=== PATIENT | female | born 1965 | race Caucasian/White ===

== ENCOUNTER 2020-12-28 13:16 | Emergency (ER) | payer OTHER, SELFPAY ==
--- NOTE | ~2020-12-28 | XR_ITS ---
EXAMINATION: XR elbow RT min 3V DATE: 12/28/2020 13:59 INDICATION: Right elbow pain and swelling TECHNIQUE: Anteroposterior, two oblique and lateral views of the right elbow were obtained. COMPARISON: None. FINDINGS: Right elbow alignment is normal. No fracture or joint effusion. Joint spaces are normal. Soft tissues are unremarkable. IMPRESSION: 1. Negative right elbow radiographs. Reviewed, dictated and finalized at location A.
[2020-12-28 13:22] VITALS: BP 124/87; PULSE 77; RESP 16; TEMP 36.9; O2SAT 99
--- NOTE | 2020-12-28 13:28 | ED.EXTPRO ---
HPI - Extremity Problem General Chief complaint: Extremity Problem,Nontraumatic Stated complaint: R ELBOW PAIN Time Seen by Provider: 12/28/20 13:40 Source: patient and RN notes reviewed Mode of arrival: ambulatory Limitations: no limitations History of Present Illness HPI Narrative: 55-year-old female presents with concern for right elbow pain, decreased range of motion that started today. She denies injury or trauma. She denies distal numbness, tingling, decrease strength. She denies warmth, redness, open skin. She denies any history of problems with that extremity. She reports pain radiates towards the shoulder. She denies fever, body aches. MD Complaint: extremity pain Related Data Allergies Allergy/AdvReac Type Severity Reaction Status Date / Time tetracycline Allergy Unknown Skin Verified 12/28/20 13:22 Reaction Review of Systems Review of Systems: CONSTITUTIONAL: Denies malaise, chills, sweats, or fever. SKIN: Denies rash or itching, bruising, swelling, erythema, warmth. MUSCULOSKELETAL: Reports right elbow pain and decreased range of motion NEUROLOGIC: Denies numbness, weakness. All systems reviewed & are unremarkable except as noted in HPI and below PMFSH Past Medical History Medical History Anxiety Back pain Hx of migraines Obesity Obesity (BMI 30-39.9) Surgical History Surgical History History of bilateral tubal ligation (~2008) Family History Family History Mother Family history of obesity Depression Hypertension Asthma Cerebrovascular accident Father Family history of hypercholesterolemia Hypertension Social History Social History Smoking packs per day: 0.5 Smoking cigarettes per day: 10.0 Tobacco type: cigarettes Alcohol intake: current Comments At time of signature, agree with nursing past medical, surgical, social and family history. There is no relevant family history pertinent to the presenting complaint Exam Narrative: GENERAL: Well-appearing, well-nourished, and in no acute distress. HEAD: Normocephalic, atraumatic. EYES: PERRLA, conjunctivae clear NECK: Supple. CHEST: Speaks in full sentences. No respiratory distress. HEART: Regular rate and rhythm. Normal and equal peripheral pulses. EXTREMITIES: Right elbow has grossly normal strength and sensation. Limited range of motion, unable to fully extend. No edema erythema, warmth, or ecchymosis. Lateral elbow tenderness. No open wounds, no skin tenting, no devitalized tissue or atrophy, no trophic changes, no obvious deformity, alignment normal, nearby joints and structures intact. Distal pulses palpable and equal bilaterally, skin warm, dry, pink. Capillary refill less than 3 seconds. SKIN: Warm, dry, no rash. NEURO: Alert and oriented x3. PSYCH: Normal mood and affect Course Course Emergency Course: Patient is aware of diagnosis, understands and agrees to treatment plan. Anticipatory guidance given. Patient agrees to follow-up as directed and is aware of reasons to seek care at the emergency department. Portions of this record may have been created with voice recognition software Vital Signs Vital signs: Reviewed. MDM - Extremity (Nontraumatic) MDM Narrative Medical decision making narrative: Patients pain is consistent with musculoskeletal etiology. No signs of neurological or vascular compromise on exam. Compartments and tissues are soft without signs of compartment syndrome. Pain is felt appropriate for further evaluation on an outpatient basis. Imaging Data My impression: Images reviewed, interpreted by radiologist, agree, see report. Radiologist's impression: EXAMINATION: XR elbow RT min 3V DATE: 12/28/2020 13:59 INDICATION: Right elbow pain and swelling TECHNIQUE: Anteropos
== END 2020-12-28 14:30 | disposition home or self-care (01) ==
PROVIDERS: Emergency Provider Nurse Practitioner; PCP Family Medicine
DX: M25.521 Pain in right elbow (principal); F17.210 Nicotine dependence, cigarettes, uncomplicated
CPT/HCPCS: 73080; 99213; G0463

== ENCOUNTER → 2021-04-10 12:08 | Outpatient (CLI) | payer OTHER, SELFPAY ==
--- NOTE | ~2021-04-10 | XR_ITS ---
EXAMINATION:XR_[id number] DATE: 04/10/2021 12:29 INDICATION: Brachial plexus disorder with 20 years of neck pain. Bilateral arm numbness and tingling. TECHNIQUE: AP, lateral, lateral swimmers and odontoid views of the cervical spine are provided. COMPARISON: None FINDINGS: Mild upper thoracic levocurvature. Normal alignment of the cervical spine. Odontoid is intact. Angelica l atlantoaxial interval. Vertebral body heights are normal. Mild disc height loss at C4-C5 and C6-C7 and mild to moderate disc height loss at C5-C6. There is mild associated uncovertebral osteoarthritis at each of these levels. Multilevel mild to moderate cervical facet osteoarthritis most prominent at C3-C4 and C7-T1. No cervical ribs. Prevertebral soft tissues are normal. Visualized apices of the ede ngs are clear. IMPRESSION: 1. Interval progression of mild to moderate cervical spondylosis. Reviewed, dictated and finalized at location A. RPRISE APPLICATION DEVELOPER
== END ==
PROVIDERS: PCP Physician Assistant; Visit Provider Physician Assistant
DX: G54.0 Brachial plexus disorders (principal)
CPT/HCPCS: 72040

== ENCOUNTER 2021-05-28 08:20 | Outpatient (CLI) | payer OTHER, SELFPAY ==
--- NOTE | ~2021-05-28 | MM_ITS ---
EXAMINATION: MM screening benja BI w roxie HISTORY: Screening TECHNIQUE: Craniocaudal and mediolateral oblique 3-D tomosynthesis images were obtained and synthetic 2-D images were generated. CAD analysis was submitted and interpreted. COMPARISON: Comparison to multiple prior studies sequentially, with oldest reviewed study dated 09/2012. BREAST PARENCHYMAL COMPOSITION: There are scattered areas of fibroglandular density. FINDINGS: There is no evidence of suspicious mass, calcification, or architectural distortion to sugg est malignancy in either breast. There has been no suspicious interval change. IMPRESSION: 1. No mammographic evidence of malignancy. 2. Recommend routine screening mammography in one year. BI-RADS Category 1: Negative Reviewed, dictated and finalized at location A. T REVIEWER
== END 2021-05-28 08:21 | disposition home or self-care (01) ==
LOC: ANHIMG 08:21
PROVIDERS: PCP Physician Assistant; Visit Provider Family Medicine
DX: Z12.31 Encounter for screening mammogram for malignant neoplasm of breast (principal)
CPT/HCPCS: 77063; 77067

== ENCOUNTER 2022-09-26 08:56 | Outpatient (CLI) | payer OTHER, SELFPAY ==
[2022-09-26 16:56] LABS: Hematocrit 47.5 % (37.0-47.0); Hemoglobin 15.2 g/dL (12.0-15.0); Mean Corpuscular Hemoglobin 30.5 pg (26-34); Mean Corpuscular Volume 95.4 fl (80-100); Mean Platelet Volume 11.2 fl (7.4-10.4); Platelet Count Result 255 k/mm3 (150-375); Red Blood Count 4.98 M/mm3 (4.2-5.4); Red Cell Distribution Width 13.6 % (11.5-14.5); White Blood Count 8.5 K/mm3 (4.5-10.0)
[2022-09-26 19:34] LABS: Alanine Aminotransferase 34 U/L (6-35); Albumin Level 4.2 g/dL (3.5-5.1); Alkaline Phosphatase 79 U/L (38-126); Anion Gap 5 mmol/L (8-16); Aspartate Amino Transferase 36 U/L (14-36); Bilirubin,Total 0.9 mg/dL (0.2-1.3); Blood Urea Nitrogen 9 mg/dL (7-17); Calcium 8.6 mg/dL (8.4-10.2); Carbon Dioxide 30 mmol/L (22-30); Chloride 104 mmol/L (98-107); Cholesterol 217 mg/dL (0-200); Estimated Glomerular Filt Rate > 60; Glucose 68 mg/dL (65-110); HDL Direct 60 mg/dL; Potassium 3.6 mmol/L (3.4-5.0); Sodium 139 mmol/L (137-145); Triglycerides 106 mg/dL (<150)
[2022-09-26 19:47] LABS: LDL Cholesterol Direct 127 mg/dL
== END 2022-09-26 08:57 | disposition home or self-care (01) ==
LOC: ANHGOSHLAB 08:57
PROVIDERS: PCP Family Medicine; Visit Provider Family Medicine
DX: E66.3 Overweight (principal); E78.00 Pure hypercholesterolemia, unspecified
CPT/HCPCS: 36415; 80053; 80061; 84443; 85027

== ENCOUNTER 2025-03-05 11:50 | Emergency (ER) | payer BC, SELFPAY ==
[2025-03-05 12:13] VITALS: BP 116/85; PULSE 82; RESP 20; TEMP 36.4; O2SAT 97
--- NOTE | 2025-03-05 12:39 | ED.UPPEXIN ---
HPI - Extremity Injury (Upper) General Chief Complaint: Extremity Injury, Upper Stated Complaint: FINGER LACERATION History of Present Illness HPI narrative: CHIEF COMPLAINT: Laceration on finger PATIENT SUMMARY: The patient presented with a laceration on the finger. HISTORY OF PRESENT ILLNESS: The patient reported sustaining a laceration/avulsion on the tip of the finger while washing a ceramic bowl that broke unexpectedly. The injury resulted in significant bleeding, which persisted for thirty minutes before stopping. The patient attempted to use Steri-Strips to manage the bleeding but was unsuccessful, leading to their visit. The patient expressed concern about the bleeding and mentioned it had stopped upon arrival. The patient believed the laceration was clean due to the significant bleeding and did not think any ceramic pieces remained in the wound. The patient reported a history of bunion surgery, during which they opted for a nerve block over general anesthesia, indicating a tolerance for surgical pain but not anesthesia. The patient was unsure of when their last tetanus shot was administered, estimated to be within the last ten years. PAST MEDICAL HISTORY: - Bunion surgery with regional anesthesia PAST SURGICAL HISTORY: - Bunionectomy (date unspecified) REVIEW OF SYSTEMS: Integumentary: Positive for laceration on the finger. Negative for any other skin lesions or rashes. Musculoskeletal: Positive for a history of bunion surgery. Negative for joint pain or swelling. VITALS AND PHYSICAL EXAM: Not available. ASSESSMENT: 1. Finger laceration: The most likely problem is a simple laceration on the fingertip due to a ceramic bowl breaking. The wound bled significantly, suggesting it was deep but likely clean due to the irrigation from the bleeding. 2. Tetanus prophylaxis consideration: Considering the patient's uncertainty about their last tetanus booster, there is a need to evaluate and possibly administer a tetanus booster. 3. Possible foreign body in the wound: While the patient believes no ceramic fragments are present, there remains a slight possibility of a foreign body, warranting further inspection. Area irrigated with 100ml saline wound and explored no foreign bodies visualized PLAN: Treatment: - Applied tissue adhesive (glue) to the laceration. dressed by RN Tests: - Checked medical records for tetanus vaccination status. Patient Education: - Instructed the patient to keep the wound clean and dry. - Advised on signs of infection to watch for, such as increased redness, swelling, or pus. Follow-Up: - Recommended follow-up if the wound does not heal properly or shows signs of infection. Related Data Home Medications ?Medication ?Instructions ?Recorded ?Confirmed ?Last Taken ?Type cetirizine 10 mg tablet (Zyrtec) 10 mg PO DAILY PRN 10/26/21 07/12/22 Unknown History loratadine 10 mg tablet (Claritin) 10 mg PO .COMPLEX 10/26/21 07/12/22 Unknown History Allergies Allergy/AdvReac Type Severity Reaction Status Date / Time tetracycline Allergy Unknown Skin Verified 03/05/25 12:20 Reaction Review of Systems Review of Systems: All systems reviewed & are unremarkable except as noted in HPI and below Eyes: Eyes: Reports as per HPI ENT: Reports as per HPI Cardiovascular: Cardiovascular: Reports as per HPI Respiratory: Respiratory: Reports as per HPI Genitourinary: Genitourinary: Reports as per HPI Musculoskeletal: Musculoskeletal: Reports as per HPI Integumentary/Breasts: Skin/Breast: Reports as per HPI Neurologic: Reports as per HPI Psychiatric: Psychiatric: Reports as per HPI Endocrine: Endocrine: Reports as per HPI Hematologic/Lymphatic: Hematologic/Lymphatic: Reports as per HPI Allergic/Immunologic: Allergic/Immunologic: Reports as per HPI [facility] Past Medical History Medical History Anxiety Back pain Hx of migraines Obesity Obesity (BMI 30-39.9) Surgical History Surgical History History of bilateral tubal ligation (~2008) Family History Family History Mother Family history of obesity Depression Hypertension Asthma Cerebrovascular accident Father Family history of hypercholesterolemia Hypertension Social History Social History Smoking packs per day: 0.5 Smoking cigarettes per day: 10.0 Years smoked: 30 Smoking pack-years: 15.00 Smoking status: Current every day smoker Tobacco type: cigarettes Alcohol intake: current Exam Const: General: cooperative, healthy appearing, comfortable, no acute distress and well developed Orientation/consciousness: patient oriented x3 HENMT: Head: normal to inspection Eyes: General: appearance normal, both eyes and all related structures Resp: Effort & Inspection: normal respiratory effort and able to speak in complete sentences Auscultation: clear to auscultation bilaterally Cardio: Rate: regular rate Rhythm: regular rhythm Heart sounds: S1 normal heart sound present and S2 normal heart sound present Skin: General skin exam: normal color Other: laceration to 2nd digit near nail. flap like bleeding controlled Neuro: General: patient oriented x3 Cognition (Neuro): normal cognition Speech: normal speech Psych: Mental Status: mental status grossly normal Course Course Level of Care: Express Care Visit Vital Signs Vital signs: Vital Signs Temperature 97.6 F 03/05/25 12:13 Pulse Rate 82 03/05/25 12:13 Respiratory Rate 20 03/05/25 12:13 Blood Pressure 116/85 03/05/25 12:13 Pulse Oximetry 97 03/05/25 12:13 Oxygen Delivery Room Air 03/05/25 12:13 Temperature 97.6 F 03/05/25 12:13 Pulse Rate 82 03/05/25 12:13 Respiratory Rate 20 03/05/25 12:13 Blood Pressure 116/85 03/05/25 12:13 Pulse Oximetry 97 03/05/25 12:13 Oxygen Delivery Room Air 03/05/25 12:13 Procedures Laceration Laceration 1: Date: 03/05/25 Time: 12:37 Side (If applicable): left Size (cm): 1 Description: flap Depth: simple, single layer Pre-repair: wound explored and irrigated ====== Skin Level ====== Skin layer closed with: dermabond ====== Subcutaneous Layer ====== ====== Muscle Layer ====== ====== Tendon Layer ====== MDM - Extremity Injury (Upper) [facility] Narrative Medical decision making narrative: MEDICAL DECISION MAKING: The patient's history of present illness was reviewed, focusing on the mechanism of injury and the attempted home management of the wound. Testing included checking the patient's tetanus immunization status. The differential diagnosis was primarily focused on managing the laceration and ensuring there were no foreign bodies. The plan of care included wound closure with adhesive, protection of the wound, and ensuring tetanus prophylaxis was up to date. Further care was advised should signs of infection develop. Differential Diagnosis Differential diagnosis: Likely other (laceration of finger, avulsion, cellulitis) Medical Records Attestation: I reviewed the patient's medical records. Discharge Plan Discharge Clinical Impression: Laceration of finger Qualifiers: Encounter type: initial encounter Finger: index finger Damage to nail status: without damage Foreign body presence: without foreign body Laterality: left Qualified Code(s): S61.211A - Laceration without foreign body of left index finger without damage to nail, initial encounter Patient Disposition: Home Condition: Stable Instructions: Antibiotic Form, Laceration (ED), Skin Adhesive Care (ED) Additional Instructions: Keep the dressing on for 24 hours. Use the splint to help protect the finger so you do not reopen the wound. your tetanus was updated today. after 24 hours you can leave the dressing off but I suggest the splint so you do not re open it. Patient Language: [place] Prescriptions: No Action cetirizine [Zyrtec] 10 mg tablet 10 mg PO DAILY PRN loratadine [Claritin] 10 mg tablet 10 mg PO .COMPLEX Rx Instructions: 10 mg orally tid; methylprednisolone [Medrol (Sujit)] 4 mg tablets,dose pack See Rx Instructions PO PER PKG DIR Qty: 21 0RF Rx Instructions: PO PER PKG DIR amoxicillin-pot clavulanate 875-125 mg tablet 1 tablet PO BID Qty: 14 0RF trazodone 50 mg tablet 50 mg PO .QHS Qty: 90 1RF Follow-up/Referrals: Cindi Malave DO [Primary Care Provider, [facility]] Time of Disposition: 12:47
[2025-03-05] MEDS: TETANUS,DIPHTHERIA,AC PERTUSSIS ADULT (0.5 ML) BOOSTRIX IM (12:50)
== END 2025-03-05 13:35 | disposition home or self-care (01) ==
PROVIDERS: Emergency Provider Nurse Practitioner Family; PCP Family Medicine
DX: S61.211A Laceration without foreign body of left index finger without damage to nail, initial encounter (principal); W45.8XXA Other foreign body or object entering through skin, initial encounter; Z23 Encounter for immunization; F17.210 Nicotine dependence, cigarettes, uncomplicated; E66.9 Obesity, unspecified; Z68.32 Body mass index [BMI] 32.0-32.9, adult
CPT/HCPCS: 12001; 90471; 90715; 99212; G0463